=== PATIENT | male | born 1935 | race Caucasian/White ===

== ENCOUNTER 2020-04-26 10:11 | Day surgery (SDC) | payer MEDICARE, BC ==
[~2020-04-26] VITALS: Ht 177.8 cm; Wt 79.5 kg
[2020-04-26 10:20] VITALS: BP 149/82
[2020-04-26] MEDS ORDERED: LIDOcaine Viscous 15ml cup ONE (10:21)
[2020-04-26] MEDS ORDERED: MIDAZolam 5mg/5ml vial ONE (10:21)
[2020-04-26] MEDS ORDERED: fentaNYL/PF 50MCG/1 ML 2ML syringe ONE (10:21)
[2020-04-26] MEDS ORDERED: METO50TA17 PO (10:28)
[2020-04-26] MEDS ORDERED: FENO48TA9 PO (10:29)
[2020-04-26] MEDS ORDERED: SIMV40TA PO (10:30)
[2020-04-26] MEDS ORDERED: CARB1TAB23 PO (10:30)
[2020-04-26] MEDS ORDERED: ASPI-611 PO (10:32)
[2020-04-26] MEDS ORDERED: MULT-1085 PO (10:34)
[2020-04-26] MEDS ORDERED: CHOL40002 PO (10:36)
[2020-04-26] MEDS ORDERED: TRIH2TAB3 PO (10:37)
[2020-04-26] MEDS ORDERED: THIA50TA10 PO (10:37)
[2020-04-26] MEDS ORDERED: FLUT16SP28 BOTHNARES (10:38)
[2020-04-26] MEDS ORDERED: IPRA30SP (10:39)
[2020-04-26 11:11] VITALS: BP 140/83
[2020-04-26 11:21] VITALS: BP 155/88
[2020-04-26 11:31] VITALS: BP 159/79
[2020-04-26 11:41] VITALS: BP 131/64
== END 2020-04-26 12:05 | disposition home or self-care (01) ==
LOC: GI LAB 10:11
PROVIDERS: ATTEND Internal Medicine Gastroenterology
DX: R13.10 Dysphagia, unspecified (principal); K44.9 Diaphragmatic hernia without obstruction or gangrene; K20.80 Other esophagitis without bleeding; K26.9 Duodenal ulcer, unspecified as acute or chronic, without hemorrhage or perforation; K29.50 Unspecified chronic gastritis without bleeding; I10 Essential (primary) hypertension; G20 Parkinson's disease; Z86.73 Personal history of transient ischemic attack (TIA), and cerebral infarction without residual deficits; Z79.82 Long term (current) use of aspirin; Z79.899 Other long term (current) drug therapy
CPT/HCPCS: 43239; G0500; J2250; J3010; J7040; 99152; A4620